=== PATIENT | female | born 1995 | race African-American/Black ===

== ENCOUNTER 2019-12-01 13:15 | Inpatient (IN) ==
[2019-12-01 14:38] LABS: Apearance,Urine CLOUDY (Clear); Bacteria,Urine Occasional /HPF (Few); Bilirubin,Urine Small mg/dL (Negative); Blood, Urine Negative (Negative); Calcium Oxalate Crystals,Urine Moderate /HPF (Few); Glucose,Urine (UA) Negative (Negative); Hyaline Casts,Urine 7 /LPF (0-3); Ketones,Urine 20 mg/dL (Negative); Mucus,Urine Many /LPF (Occasional); Nitrite,Urine Negative (Negative); Protein,Urine 30 MG/DL; RBC,Urine 3 /HPF (0-4); Sperm,Urine Occasional /HPF (Negative); Squamous Epithelial Cell,Urine Occasional /HPF (0-10); Urine Color Amber (Yellow); Urine Specific Gravity 1.021 (1.001-1.035); WBC,Urine 17 /HPF (0-6)
[2019-12-01] MEDS: LACTATED RINGERS 1,000 ML IV SCH ×2 (15:30→20:00)
[2019-12-01] MEDS: ONDANSETRON 4 MG/2 ML VIAL IV PRN ×2 (15:45→22:22)
[2019-12-01 15:50] LABS: Basophils # 0.1 10*3/uL (0.0-0.2); Basophils % 0.4 % (0.0-0.8); Eosinophils # 0.1 10*3/uL (0.0-0.87); Eosinophils % 0.5 % (0.00-10.9); Hematocrit 38.6 VOL% (35.7-47.0); Hemoglobin 12.3 GM/DL (12.0-16.0); Immature Granulocytes % 1.6 %; Immature Granulocytes Absolute 0.21 #; Lymphocytes # 1.6 10*3/uL (1.4-4.0); Mean Corpuscular HGB Conc 31.9 GM/DL (32-36); Mean Corpuscular Volume 82.5 FL (87-102); Mean Platelet Volume 9.4 FL (9.6-12.0); Monocytes % 7.3 % (1.7-12.7); Neutrophils % 78.2 % (38.7-73.9); Platelet Count 369 T/CUMM (130-400); Red Blood Count 4.68 MC/CUMM (3.8-5.5); Red Cell Distribution Width 13.6 % (9.3-17.3); White Blood Count 12.9 T/CUMM (4-12)
[2019-12-01] MEDS: BETAMETH SODIUM PHOS/ACETATE 30 MG/5 ML VIAL IM SCH (15:51)
[2019-12-01] MEDS: PANTOPRAZOLE 40 MG VIAL IV SCH (15:54)
[2019-12-01 15:57] LABS: Albumin 3.4 G/DL (3.4-5.0); Calcium 10.4 MG/DL (8.5-10.1); Osmolality,Calculated 254.9 MOS/KG (273-304); Total Protein 9.1 G/DL (6.4-8.3)
[2019-12-01 17:10] LABS: PT Patient Result 10.9 SECS (9.8-11.9); Partial Thromboplastin Time 24.9 SECS (23.9-33.8)
[2019-12-01 17:14] LABS: Thyroid Stimulating Hormone 1.65 uIU/ml (0.358-3.74); Uric Acid 6.8 MG/DL (2.6-6.0)
[2019-12-01] MEDS ORDERED: NIFEdipine 10 MG CAPSULE PO SCH (18:00)
[2019-12-01] MEDS ORDERED: BUTORPHANOL 1 MG/ML VIAL IV PRN (21:58)
[2019-12-01] MEDS: MAGNESIUM SULF DRIP 40 GM/1,000 ML ML IV SCH (22:15)
[2019-12-01 22:24] LABS: Basophils % 0.1 % (0.0-0.8); Hematocrit 32.1 VOL% (35.7-47.0); Hemoglobin 10.3 GM/DL (12.0-16.0); Immature Granulocytes % 1.8 %; Immature Granulocytes Absolute 0.25 #; Lymphocytes # 0.8 10*3/uL (1.4-4.0); Lymphocytes % 5.7 % (21.3-54.2); Mean Corpuscular HGB Conc 32.1 GM/DL (32-36); Mean Corpuscular Volume 82.1 FL (87-102); Mean Platelet Volume 9.2 FL (9.6-12.0); Monocytes % 1.2 % (1.7-12.7); Neutrophils % 91.2 % (38.7-73.9); Platelet Count 296 T/CUMM (130-400); Red Blood Count 3.91 MC/CUMM (3.8-5.5); Red Cell Distribution Width 13.5 % (9.3-17.3); White Blood Count 14.2 T/CUMM (4-12)
[2019-12-01 22:45] LABS: INR 1.1; PT Patient Result 11.5 SECS (9.8-11.9); Partial Thromboplastin Time 25.1 SECS (23.9-33.8)
[2019-12-01 22:51] LABS: Albumin 2.7 G/DL (3.4-5.0); Bilirubin,Total 1.6 MG/DL (0.2-1.0); Calcium 9.4 MG/DL (8.5-10.1); Osmolality,Calculated 260.7 MOS/KG (273-304); Total Protein 7.4 G/DL (6.4-8.3)
[2019-12-01 22:58] LABS: Band Neutrophils 1 % (0-10); Lymphocytes 5 % (20-55); Platelet Estimate Normal; Segmented Neutrophils 93 % (50-85); Total Cells Counted 100
[2019-12-01 23:00] LABS: Microcytosis 1+; Polychromasia Slight
[2019-12-01 23:01] LABS: Hypochromasia Slight
[2019-12-02] MEDS: LACTATED RINGERS 1,000 ML IV SCH ×3 (04:02→19:45)
[2019-12-02] MEDS: POTASSIUM CHLORIDE 20 MEQ TABLET PO SCH ×3 (04:41→10:41)
[2019-12-02] MEDS: PANTOPRAZOLE 40 MG VIAL IV SCH (08:37)
[2019-12-02 10:28] LABS: Total Protein 12 Hr Ur Result 330 MG/12HR (0-75)
[2019-12-02 10:50] LABS: Creatinine 12 Hr Ur Result 0.75 G/12HR (0.30-0.90)
[2019-12-02 14:01] LABS: Basophils % 0.1 % (0.0-0.8); Hematocrit 27.8 VOL% (35.7-47.0); Hemoglobin 8.9 GM/DL (12.0-16.0); Immature Granulocytes Absolute 0.17 #; Lymphocytes # 1.3 10*3/uL (1.4-4.0); Lymphocytes % 7.8 % (21.3-54.2); Mean Platelet Volume 9.3 FL (9.6-12.0); Monocytes % 6.6 % (1.7-12.7); Neutrophils % 84.5 % (38.7-73.9); Platelet Count 273 T/CUMM (130-400); Red Blood Count 3.39 MC/CUMM (3.8-5.5); Red Cell Distribution Width 13.5 % (9.3-17.3); White Blood Count 17.2 T/CUMM (4-12)
[2019-12-02 14:29] LABS: Alanine Aminotransferase 47 U/L (13-56); Albumin 2.4 G/DL (3.4-5.0); Alkaline Phosphatase 108 U/L (45-117); Aspartate Amino Transferase 40 U/L (0-37); Blood Urea Nitrogen < 1 MG/DL (7-18); Estimated Glom Filtration Rate 105 ML/MIN; Glucose 158 MG/DL (74-106); Total Protein 6.5 G/DL (6.4-8.3); Uric Acid 3.6 MG/DL (2.6-6.0)
[2019-12-02 14:31] LABS: Troponin I < 0.015 NG/ML (0.00-0.045)
[2019-12-02 14:32] LABS: PT Patient Result 10.8 SECS (9.8-11.9); Partial Thromboplastin Time 24.1 SECS (23.9-33.8)
[2019-12-02] MEDS: BETAMETH SODIUM PHOS/ACETATE 30 MG/5 ML VIAL IM SCH ×2 (15:33→15:35)
[2019-12-02 16:25] VITALS: BP 122/79
[2019-12-02] MEDS: MAGNESIUM SULF DRIP 40 GM/1,000 ML ML IV SCH ×2 (17:56→19:47)
[2019-12-02 18:10] LABS: Basophils % 0.1 % (0.0-0.8); Hematocrit 26.6 VOL% (35.7-47.0); Hemoglobin 8.5 GM/DL (12.0-16.0); Immature Granulocytes % 1.2 %; Immature Granulocytes Absolute 0.19 #; Lymphocytes # 0.9 10*3/uL (1.4-4.0); Lymphocytes % 5.7 % (21.3-54.2); Mean Corpuscular Volume 83.4 FL (87-102); Mean Platelet Volume 9.1 FL (9.6-12.0); Monocytes % 2.7 % (1.7-12.7); Neutrophils % 90.3 % (38.7-73.9); Platelet Count 249 T/CUMM (130-400); Red Blood Count 3.19 MC/CUMM (3.8-5.5); Red Cell Distribution Width 13.6 % (9.3-17.3); White Blood Count 15.4 T/CUMM (4-12)
[2019-12-02] MEDS: NIFEdipine 10 MG CAPSULE PO SCH (21:05)
[2019-12-03] MEDS: NIFEdipine 10 MG CAPSULE PO SCH ×3 (03:03→15:25)
[2019-12-03] MEDS: LACTATED RINGERS 1,000 ML IV SCH (03:48)
[2019-12-03] MEDS: PANTOPRAZOLE 40 MG VIAL IV SCH (09:12)
[2019-12-03] MEDS ORDERED: POTASSIUM CHLORIDE 20 MEQ TABLET PO PRN (10:57)
== END 2019-12-03 18:25 | disposition home or self-care (01) | DRG 563 ==
LOC: N.LDOUT 13:15 → N.LD 13:19
PROVIDERS: ADMIT Obstetrics & Gynecology; ATTEND Obstetrics & Gynecology

== ENCOUNTER 2019-12-10 16:45 | Observation (INO) ==
[2019-12-10] MEDS ORDERED: MAGNESIUM SULF RIDER 100 ML IV ONE (16:59)
[2019-12-10] MEDS ORDERED: MAGNESIUM SULF DRIP 40 GM/1,000 ML ML IV SCH (17:00)
[2019-12-10] MEDS: LACTATED RINGERS 1,000 ML IV SCH (17:15)
[2019-12-10] MEDS ORDERED: BUTORPHANOL 2 MG/ML VIAL IV PRN (17:16)
[2019-12-10] MEDS ORDERED: ONDANSETRON 4 MG/2 ML VIAL IV PRN (17:16)
[2019-12-10] MEDS ORDERED: MEPERIDINE 50 MG/1 ML VIAL IV PRN (17:16)
[2019-12-10 17:46] LABS: Basophils % 0.2 % (0.0-0.8); Eosinophils # 0.2 10*3/uL (0.0-0.87); Eosinophils % 1.4 % (0.00-10.9); Hematocrit 24.3 VOL% (35.7-47.0); Hemoglobin 7.4 GM/DL (12.0-16.0); Immature Granulocytes % 3.3 %; Immature Granulocytes Absolute 0.41 #; Lymphocytes # 2.2 10*3/uL (1.4-4.0); Lymphocytes % 17.7 % (21.3-54.2); Mean Corpuscular HGB Conc 30.5 GM/DL (32-36); Mean Corpuscular Volume 85.3 FL (87-102); Mean Platelet Volume 9.3 FL (9.6-12.0); Monocytes % 7.7 % (1.7-12.7); Neutrophils % 69.7 % (38.7-73.9); Platelet Count 312 T/CUMM (130-400); Red Blood Count 2.85 MC/CUMM (3.8-5.5); Red Cell Distribution Width 13.7 % (9.3-17.3); White Blood Count 12.4 T/CUMM (4-12)
[2019-12-10] MEDS: AMPICILLIN INJ 2,000 MG in SODIUM CHLORIDE 0.9% 100 ML IV SCH ×2 (18:03→23:22)
[2019-12-10 18:19] LABS: Alanine Aminotransferase 29 U/L (13-56); Albumin 2.5 G/DL (3.4-5.0); Alkaline Phosphatase 98 U/L (45-117); Aspartate Amino Transferase 17 U/L (0-37); Bilirubin,Total < 0.39 MG/DL (0.2-1.0); Blood Urea Nitrogen 5 MG/DL (7-18); Calcium 8.8 MG/DL (8.5-10.1); Estimated Glom Filtration Rate 155 ML/MIN; Glucose 105 MG/DL (74-106); Osmolality,Calculated 264.2 MOS/KG (273-304); Total Protein 6.3 G/DL (6.4-8.3)
[2019-12-11] MEDS: LACTATED RINGERS 1,000 ML IV SCH (05:05)
[2019-12-11] MEDS: AMPICILLIN INJ 2,000 MG in SODIUM CHLORIDE 0.9% 100 ML IV SCH ×2 (05:35→13:51)
[2019-12-11] MEDS: NIFEdipine 10 MG CAPSULE PO SCH ×2 (08:43→13:52)
[2019-12-11] MEDS ORDERED: METOPROLOL SUCCINATE XL 25 MG TABLET PO SCH (09:00)
[2019-12-11 13:21] VITALS: BP 107/64
== END 2019-12-11 13:55 | disposition home or self-care (01) | DRG 563 ==
LOC: N.LDOUT 16:45 → N.LD 16:47 → INTOOBSV 16:50
PROVIDERS: ADMIT Specialist; ATTEND Specialist

== ENCOUNTER 2020-02-18 05:34 | Inpatient (IN) ==
[2020-02-18] MEDS ORDERED: BUTORPHANOL 2 MG/ML VIAL IV PRN (06:56)
[2020-02-18] MEDS ORDERED: BUTORPHANOL 1 MG/ML VIAL IV PRN (06:56)
[2020-02-18] MEDS ORDERED: MEPERIDINE 50 MG/1 ML VIAL IM PRN (06:56)
[2020-02-18] MEDS ORDERED: ONDANSETRON 4 MG/2 ML VIAL IV PRN ×2 (06:56→17:17)
[2020-02-18] MEDS ORDERED: OXYTOCIN/LR 20 UNIT/1,000 ML BAG IV SCH (07:00)
[2020-02-18] MEDS ORDERED: ONDANSETRON 4 MG/2 ML VIAL IV ONE (07:15)
[2020-02-18] MEDS ORDERED: NALOXONE 0.4 MG/ML VIAL IV PRN (07:15)
[2020-02-18] MEDS ORDERED: hydrOXYzine HCL 25 MG/1 ML VIAL IM PRN (07:15)
[2020-02-18] MEDS ORDERED: CITRIC ACID/SODIUM CITRATE 30 ML UDCUP PO ONE (07:15)
[2020-02-18] MEDS ORDERED: diphenhydrAMINE 50 MG/1 ML VIAL IV PRN ×2 (07:15)
[2020-02-18] MEDS ORDERED: ePHEDrine 50 MG/ML VIAL IV PRN (07:15)
[2020-02-18] MEDS ORDERED: FAMOTIDINE 20 MG/2 ML VIAL IV ONE (07:15)
[2020-02-18] MEDS ORDERED: PROMETHAZINE 25 MG/1 ML VIAL IM ONE (07:15)
[2020-02-18] MEDS ORDERED: LACTATED RINGERS 1,000 ML IV ONE (07:15)
[2020-02-18 07:21] LABS: Basophils % 0.2 % (0.0-0.8); Eosinophils # 0.1 10*3/uL (0.0-0.87); Eosinophils % 0.9 % (0.00-10.9); Hematocrit 23.8 VOL% (35.7-47.0); Immature Granulocytes % 0.7 %; Immature Granulocytes Absolute 0.07 #; Lymphocytes # 2.1 10*3/uL (1.4-4.0); Lymphocytes % 20.9 % (21.3-54.2); Mean Platelet Volume 9.3 FL (9.6-12.0); Monocytes % 9.6 % (1.7-12.7); NRBC # 0.03 10*3/uL; Neutrophils % 67.7 % (38.7-73.9); Platelet Count 315 T/CUMM (130-400); Red Blood Count 3.13 MC/CUMM (3.8-5.5); Red Cell Distribution Width 17.4 % (9.3-17.3)
[2020-02-18 07:29] LABS: Hemoglobin 6.9 GM/DL (12.0-16.0)
[2020-02-18] MEDS: LACTATED RINGERS 1,000 ML IV SCH ×2 (07:54→13:25)
[2020-02-18] MEDS: fentaNYL 2 MCG/ROPIV 0.2% EPID 100 ML EPIDURAL SCH ×2 (08:07→14:28)
[2020-02-18 11:54] LABS: Apearance,Urine CLEAR (Clear); Bilirubin,Urine Negative (Negative); Blood, Urine Negative (Negative); Glucose,Urine (UA) Negative (Negative); Ketones,Urine 5 mg/dL (Negative); Mucus,Urine Occasional /LPF (Occasional); Nitrite,Urine Negative (Negative); Protein,Urine Negative; RBC,Urine <1 /HPF (0-4); Squamous Epithelial Cell,Urine Occasional /HPF (0-10); Urine Color Straw (Yellow); Urine Specific Gravity 1.008 (1.001-1.035); Urine Urobilinogen < 2.0 EU/DL (0.2-1.0); WBC,Urine <1 /HPF (0-6)
[2020-02-18] MEDS ORDERED: miSOPROStoL 200 MCG TABLET ONE (14:49)
[2020-02-18] MEDS ORDERED: CARBOPROST TROMETHAMINE 250 MCG/ML AMP IM ONE (14:49)
[2020-02-18] MEDS ORDERED: TRANEXAMIC ACID 1,000 MG/10 ML VIAL ONE (14:49)
[2020-02-18] MEDS ORDERED: METHYLERGONOVINE 0.2 MG/1 ML AMP ONE (14:49)
[2020-02-18] MEDS ORDERED: SODIUM CHLORIDE 0.9% 0 ML IV ONE (14:50)
[2020-02-18] MEDS ORDERED: LIDOCAINE 1% 50 ML VIAL ONE (16:33)
[2020-02-18] MEDS ORDERED: ACETAMINOPHEN 325 MG TABLET PO PRN (17:17)
[2020-02-18] MEDS ORDERED: oxyCODONE/ACETAMINOPHEN 5-325 MG TABLET PO PRN (17:17)
[2020-02-18] MEDS ORDERED: HYDROCORTISONE 2.5% RECTAL CREAM 30 GM TUBE TOP PRN (17:17)
[2020-02-18] MEDS ORDERED: OXYTOCIN/LR 20 UNIT/1,000 ML BAG IV ONE (17:17)
[2020-02-18] MEDS ORDERED: MEASLES/MUMPS/RUBELLA VACCINE 0.5 ML VIAL SUBCUT ONE (17:17)
[2020-02-18] MEDS ORDERED: BISACODYL 10 MG SUPP RECTAL PRN (17:17)
[2020-02-18] MEDS ORDERED: DIPH/TET/ACEL PERT BOOSTER VACCINE 0.5 ML VIAL IM ONE (17:17)
[2020-02-18] MEDS ORDERED: RHO(D) IMMUNE GLOBULIN 300 MCG SYRINGE IM ONE (17:17)
[2020-02-18] MEDS ORDERED: BENZOCAINE 20%/MENTHOL 0.5% SPRAY 56 GM CAN TOP PRN (17:17)
[2020-02-18] MEDS ORDERED: WITCH HAZEL PADS 100/JAR TOP PRN (17:17)
[2020-02-18] MEDS ORDERED: LANOLIN 50% CREAM 0.3 OZ TUBE TOP PRN (17:17)
[2020-02-18 17:33] LABS: Cord Arterial Blood HCO3 20.1 MMOL/L
[2020-02-18 17:37] LABS: Cord Venous Blood HCO3 22.4 MMOL/L; Cord Venous Blood PCO2 33.4 MMHG; Cord Venous Blood PO2 34.9
[2020-02-18] MEDS: IBUPROFEN 800 MG TABLET PO PRN (19:43)
[2020-02-19 06:18] LABS: Basophils % 0.2 % (0.0-0.8); Eosinophils # 0.1 10*3/uL (0.0-0.87); Eosinophils % 0.5 % (0.00-10.9); Hematocrit 22.5 VOL% (35.7-47.0); Hemoglobin 6.6 GM/DL (12.0-16.0); Immature Granulocytes % 0.8 %; Immature Granulocytes Absolute 0.12 #; Lymphocytes # 2.1 10*3/uL (1.4-4.0); Lymphocytes % 13.7 % (21.3-54.2); Mean Corpuscular HGB Conc 29.3 GM/DL (32-36); Mean Corpuscular Volume 76.8 FL (87-102); Mean Platelet Volume 9.2 FL (9.6-12.0); Monocytes % 8.5 % (1.7-12.7); NRBC # 0.03 10*3/uL; Neutrophils % 76.3 % (38.7-73.9); Platelet Count 295 T/CUMM (130-400); Red Blood Count 2.93 MC/CUMM (3.8-5.5); Red Cell Distribution Width 17.2 % (9.3-17.3); White Blood Count 15.2 T/CUMM (4-12)
[2020-02-19] MEDS: DOCUSATE SODIUM 100 MG CAPSULE PO SCH ×2 (08:43→21:05)
[2020-02-19] MEDS: IBUPROFEN 800 MG TABLET PO PRN ×2 (08:43→16:16)
[2020-02-19] MEDS: FERROUS SULFATE 325 MG TABLET PO SCH ×3 (08:43→21:05)
[2020-02-19] MEDS: oxyCODONE/ACETAMINOPHEN 5-325 MG TABLET PO PRN ×2 (08:44→16:14)
[2020-02-19] MEDS: ONDANSETRON 4 MG TABLET PO PRN (19:20)
[2020-02-20] MEDS: oxyCODONE/ACETAMINOPHEN 5-325 MG TABLET PO PRN (06:52)
[2020-02-20] MEDS: IBUPROFEN 800 MG TABLET PO PRN (06:53)
[2020-02-20] MEDS: DOCUSATE SODIUM 100 MG CAPSULE PO SCH (09:15)
[2020-02-20] MEDS: FERROUS SULFATE 325 MG TABLET PO SCH (09:15)
[2020-02-20 09:57] VITALS: BP 115/53
[2020-02-20] MEDS: ONDANSETRON 4 MG TABLET PO PRN (10:22)
== END 2020-02-20 13:10 | disposition home or self-care (01) | DRG 560 ==
LOC: N.LD 05:34 → N.OB 20:03
PROVIDERS: ADMIT Specialist; ATTEND Specialist